=== PATIENT | male | born 1995 | race American Indian/Alaskan Native ===

== ENCOUNTER 2020-09-26 19:58 | Emergency (ER) | payer SELFPAY ==
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
[2020-09-27 00:38] VITALS: BP 130/85
== END 2020-09-27 00:37 | disposition home or self-care (01) ==
LOC: ED 19:58
DX: S69.91XA Unspecified injury of right wrist, hand and finger(s), initial encounter (principal); Z79.899 Other long term (current) drug therapy; X50.9XXA Other and unspecified overexertion or strenuous movements or postures, initial encounter; Y93.89 Activity, other specified; Y92.89 Other specified places as the place of occurrence of the external cause; Y99.8 Other external cause status
CPT/HCPCS: 99282